=== PATIENT | male | born 1970 | race Caucasian/White ===

== ENCOUNTER 2017-11-15 14:10 | Emergency (ER) | payer MEDICAID, OTHER ==
[~2017-11-15] VITALS: Ht 170.2 cm; Wt 93.0 kg
[2017-11-15 14:17] VITALS: BP 93/53; PULSE 91; RESP 16; TEMP 98.2; O2SAT 94
--- NOTE | 2017-11-15 14:41 | PD ---
HPI Chief Complaint: Burn Time Seen by Provider: 14:35 Travel History International Travel<30 days: No Contact w/Intl Traveler<30days: No Traveled to known affect area: No History of Present Illness HPI 47-year-old male patient with history of pancreatic cancer status post chemotherapy, decided to hold chemotherapy 2 months ago, presents to the ER today because his on vacation here in [place], was states that he is visiting from [place] laying out on the beach on Thursday without sunblock and got sunburns to his arms and legs and they are here today because his states that there is blistering going on on the sunburns to his legs and he has been looking more tired. She thinks that he has not been drinking very much although he is still eating fine. They denied any fevers, vomiting, or other issues. Modifying Factors: None Associated Signs & Symptoms: Sun lewis to both legs, looking more tired, decreased fluid intake Risk Factors: Pancreatic cancer PFSH Social History Tobacco Use: No Allergies-Medications (Allergen,Severity, Reaction): Coded Allergies: heparin (Verified Allergy, Unknown, 11/15/17) omeprazole (Verified Allergy, Unknown, 11/15/17) Reported Meds & Prescriptions Reported Meds & Active Scripts Active Reported Prochlorperazine Maleate 10 Mg Tab 10 Mg PO Q6H PRN Zoloft (Sertraline HCl) 100 Mg Tab 100 Mg PO DAILY Pantoprazole (Pantoprazole Sodium) 40 Mg Tab 40 Mg PO BID Lorazepam 0.5 Mg Tab 0.5 Mg PO Q6H PRN Zofran (Ondansetron HCl) 8 Mg Tab 8 Mg PO TID Famotidine 20 Mg Tab 20 Mg PO DAILY Docusate Sodium 100 Mg Cap 100 Mg PO BID Dexamethasone 4 Mg Tab 4 Mg PO DAILY Fentanyl Patch 72 HR (Fentanyl) 100 Mcg/Hr Patch 100 Mcg T-DERMAL Q72H Remove old patch when new one placed. Dilaudid (Hydromorphone HCl) 4 Mg Tab 4 Mg PO Q4H PRN Review of Systems Except as stated in HPI: all other systems reviewed are Neg Physical Exam Narrative GENERAL: Well-developed middle-age male patient currently in mild distress. Tired appearing, but awake and oriented 3. SKIN: Focused skin assessment warm/dry. Erythematous first-degree sunburn to both legs anteriorly, 2 cm area of denudation on the left knee with no surrounding fluctuance or drainage, small 1 cm clear fluid filled blisters to the ankles. HEAD: Atraumatic. Normocephalic. EYES: Pupils equal and round. No scleral icterus. No injection or drainage. ENT: No nasal bleeding or discharge. Mucous membranes pink and moist. NECK: Trachea midline. No JVD. CARDIOVASCULAR: Regular rate and rhythm. No murmur appreciated. RESPIRATORY: No accessory muscle use. Clear to auscultation. Breath sounds equal bilaterally. GASTROINTESTINAL: Abdomen soft, non-tender, nondistended. Hepatic and splenic margins not palpable. MUSCULOSKELETAL: No obvious deformities. No clubbing. No cyanosis. No edema. NEUROLOGICAL: Awake and alert. No obvious cranial nerve deficits. Motor grossly within normal limits. Normal speech. PSYCHIATRIC: Appropriate mood and affect; insight and judgment normal. Data Data Last Documented VS Vital Signs Date Time Temp Pulse Resp B/P (MAP) Pulse Ox O2 Delivery O2 Flow Rate FiO2 11/15/17 16:00 68 18 142/68 (92) 94 Room Air 11/15/17 14:17 98.2 Orders Orders Complete Blood Count With Diff (11/15/17 14:35) Basic Metabolic Panel (Bmp) (11/15/17 14:35) Magnesium (Mg) (11/15/17 14:35) Sodium Chlor 0.9% 1000 Ml Inj (Ns 1000 M (11/15/17 14:45) Silver Sulfadia 1% Crm (50 Gm) (Silvaden (11/15/17 16:15) Ed Discharge Order (11/15/17 16:05) Labs Laboratory Tests Test 11/15/17 15:00 White Blood Count 10.6 TH/MM3 Red Blood Count 3.89 MIL/MM3 Hemoglobin 10.8 GM/DL Hematocrit 33.8 % Mean Corpuscular Volume 86.9 FL Mean Corpuscular Hemoglobin 27.7 PG Mean Corpuscular Hemoglobin Concent 31.9 % Red Cell Distribution Width 15.9 % Platelet Count 78 TH/MM3 Mean Platelet Volume 9.1 FL Neutrophils (%) (Auto) 91.6 % Lymphocytes (%) (Auto) 2.5 % Monocytes (%) (Auto) 4.7 % Eosinophils (%) (Auto) 0.1 % Basophils (%) (Auto) 1.1 % Neutrophils # (Auto) 9.7 TH/MM3 Lymphocytes # (Auto) 0.3 TH/MM3 Monocytes # (Auto) 0.5 TH/MM3 Eosinophils # (Auto) 0.0 TH/MM3 Basophils # (Auto) 0.1 TH/MM3 CBC Comment AUTO DIFF Differential Comment AUTO DIFF CONFIRMED Platelet Estimate LOW Platelet Morphology Comment NORMAL Blood Urea Nitrogen 17 MG/DL Creatinine 0.79 MG/DL Random Glucose 203 MG/DL Calcium Level 8.4 MG/DL Magnesium Level 2.1 MG/DL Sodium Level 137 MEQ/L Potassium Level 3.8 MEQ/L Chloride Level 103 MEQ/L Carbon Dioxide Level 29.0 MEQ/L Anion Gap 5 MEQ/L Estimat Glomerular Filtration Rate 104 ML/MIN MDM Medical Decision Making Medical Screen Exam Complete: Yes Emergency Medical Condition: Yes Medical Record Reviewed: Yes Interpretation(s) Laboratory Tests Test 11/15/17 15:00 Red Blood Count 3.89 MIL/MM3 (4.50-5.90) Hemoglobin 10.8 GM/DL (13.0-17.0) Hematocrit 33.8 % (39.0-51.0) Mean Corpuscular Hemoglobin Concent 31.9 % (32.0-36.0) Platelet Count 78 TH/MM3 (150-450) Neutrophils (%) (Auto) 91.6 % (16.0-70.0) Lymphocytes (%) (Auto) 2.5 % (9.0-44.0) Neutrophils # (Auto) 9.7 TH/MM3 (1.8-7.7) Lymphocytes # (Auto) 0.3 TH/MM3 (1.0-4.8) Platelet Estimate LOW (NORMAL) Random Glucose 203 MG/DL (74-106) Calcium Level 8.4 MG/DL (8.5-10.1) Differential Diagnosis Severe sunburns to both legs, looking more tired: Dehydration versus metabolic issues versus sepsis Narrative Course Considering his history, IV fluids was given in the ER. There is no signs of sepsis and metabolic panel is fairly unremarkable. On reevaluation at 4 PM, patient states he is feeling better. Vital signs are stable. At this point, my plan would be to give him Silvadene for the left knee where there is a skin ulcer that had developed from the burn, and I have warned him to stay away from the sun or at least use sun protection. He should follow-up with primary care physician. Return for any signs of infection or new issues as needed. The plan was discussed with him and and they state understanding. Diagnosis Primary Impression: Sunburn of second degree Additional Impression: Mild dehydration Disposition: 01 DISCHARGE HOME Condition: Stable SoonFallon cid MD Nov 15, 2017 14:41
[2017-11-15] MEDS ORDERED: SODIUM CHLOR 0.9% 1000 ML INJ 1,000 ML IV ONE (14:45)
[2017-11-15 15:14] LABS: AUTOMATED NEUTROPHIL # 9.7 TH/MM3 (1.8-7.7); BASOPHIL # 0.1 TH/MM3 (0-0.2); BASOPHIL % 1.1 % (0.0-2.0); EOSINOPHIL % 0.1 % (0.0-4.0); HEMATOCRIT 33.8 % (39.0-51.0); HEMOGLOBIN 10.8 GM/DL (13.0-17.0); LYMPH % 2.5 % (9.0-44.0); LYMPHOCYTE # 0.3 TH/MM3 (1.0-4.8); MEAN CELL VOLUME 86.9 FL (80.0-100.0); MEAN CORPUSCULAR HEMOGLOBIN 27.7 PG (27.0-34.0); MEAN CORPUSCULAR HGB CONC 31.9 % (32.0-36.0); MEAN PLATELET VOLUME 9.1 FL (7.0-11.0); MONO % 4.7 % (0.0-8.0); MONOCYTE # 0.5 TH/MM3 (0-0.9); NEUT % 91.6 % (16.0-70.0); PLATELET COUNT 78 TH/MM3 (150-450); RED BLOOD COUNT 3.89 MIL/MM3 (4.50-5.90); RED CELL DISTRIBUTION WIDTH 15.9 % (11.6-17.2); WHITE BLOOD COUNT 10.6 TH/MM3 (4.0-11.0)
[2017-11-15] MEDS ORDERED: PROC10TA PO (15:21)
[2017-11-15] MEDS ORDERED: DEXA4TAB PO (15:21)
[2017-11-15] MEDS ORDERED: DILA4TAB10 PO (15:21)
[2017-11-15] MEDS ORDERED: FENT100D T-DERMAL (15:21)
[2017-11-15] MEDS ORDERED: LORA0.5T PO (15:21)
[2017-11-15] MEDS ORDERED: FAMO20TA2 PO (15:21)
[2017-11-15] MEDS ORDERED: PANT40TA3 PO (15:21)
[2017-11-15] MEDS ORDERED: DOCU100C15 PO (15:21)
[2017-11-15] MEDS ORDERED: ZOLO100T PO (15:21)
[2017-11-15] MEDS ORDERED: ZOFR8TAB PO (15:21)
[2017-11-15 15:26] LABS: CALCIUM 8.4 MG/DL (8.5-10.1)
[2017-11-15 15:27] LABS: MAGNESIUM 2.1 MG/DL (1.5-2.5)
[2017-11-15 15:30] LABS: CREATININE 0.79 MG/DL (0.60-1.30)
[2017-11-15 16:00] VITALS: BP 142/68; PULSE 68; RESP 18; O2SAT 94
[2017-11-15] MEDS ORDERED: SILVER SULFADIAZINE 1% CR 50 GM JAR TOPICAL ONE (16:15)
== END 2017-11-15 16:24 | disposition home or self-care (01) ==
LOC: PHED 14:10
DX: L55.1 Sunburn of second degree (principal); E86.0 Dehydration; Z85.07 Personal history of malignant neoplasm of pancreas; Z79.899 Other long term (current) drug therapy
CPT/HCPCS: 16020; 80048; 83735; 85025; 96360; 99284; J7030